=== PATIENT | male | born 1970 ===

== ENCOUNTER 2017-11-19 02:50 | Emergency (ER) | payer BC ==
[2017-11-19] MEDS ORDERED: Sodium Chloride 0.9% 1,000 ML IV ONE (03:04)
[2017-11-19] MEDS ORDERED: Morphine 4 MG/ML Syringe IVPUSH PRN (03:04)
[2017-11-19] MEDS ORDERED: Sodium Chloride 0.9% 10 ML Syringe FLUSH PRN (03:04)
[2017-11-19] MEDS ORDERED: Ketorolac 30 MG/ML SDV IVPUSH ONE (03:04)
[2017-11-19] MEDS ORDERED: Ondansetron 4 MG/2 ML SDV IVPUSH ONE (03:04)
--- NOTE | 2017-11-19 04:08 | EDM.PDOC ---
ED HPI GENERAL MEDICAL PROBLEM - General Chief Complaint: Flank Pain Stated Complaint: KIDNEY STONE ISSUES Time Seen by Provider: 11/19/17 03:04 Source of Information: Reports: Patient History Limitations: Reports: No Limitations - History of Present Illness INITIAL COMMENTS - FREE TEXT/NARRATIVE: The patient is a 47-year-old male with a known history of kidney stones who presents with right flank pain. It woke him up from sleep around 2 this morning. He felt fine last evening when he went to bed. Pain is sharp, was radiating towards the right abdomen, no exacerbating or relieving factors, no provoking factors. [place] nauseated but no vomiting. No fever. He did have hematuria. No dysuria. No additional complaint. Feels very similar to when he had a kidney stone several years ago. No cough or shortness of breath, no recent illness. Right Flank Pain Score (Numeric/FACES): 9 - Related Data Allergies Allergy/AdvReac Type Severity Reaction Status Date / Time shellfish derived Allergy Anaphylactic Verified 01/15/17 14:00 Shock Home Meds: Home Meds Ibuprofen [Ibu] 800 mg PO TID PRN #40 tablet 11/19/17 [Rx] Ondansetron [Zofran ODT] 4 mg PO Q6H PRN #12 tab.dis 11/19/17 [Rx] oxyCODONE 5 mg PO QID PRN #16 tab 11/19/17 [Rx] Past Medical History - Past Health History Medical/Surgical History: Denies Medical/Surgical History Genitourinary History: Reports: Renal Calculus Social & Family History - Family History Family Medical History: Noncontributory - Tobacco Use Smoking Status *Q: Current Every Day Smoker Years of Tobacco use: 1 Packs/Tins Daily: 0.9 - Caffeine Use Caffeine Use: Reports: None - Recreational Drug Use Recreational Drug Use: No ED ROS GENERAL - Review of Systems Review Of Systems: See Below Constitutional: Denies: Fever HEENT: Reports: No Symptoms Respiratory: Denies: Shortness of Breath Cardiovascular: Reports: No Symptoms Endocrine: Reports: No Symptoms GI/Abdominal: Reports: Nausea. Denies: Abdominal Pain, Vomiting : Reports: Flank Pain, Hematuria Musculoskeletal: Reports: No Symptoms Skin: Reports: No Symptoms Neurological: Reports: No Symptoms Psychiatric: Reports: No Symptoms Hematologic/Lymphatic: Reports: No Symptoms Immunologic: Reports: No Symptoms ED EXAM, RENAL/ - Physical Exam Exam: See Below Exam Limited By: No Limitations General Appearance: Alert, WD/WN, No Apparent Distress Eye Exam: Bilateral Eye: EOMI, Normal Inspection Ears: Normal External Exam Nose: Normal Inspection Throat/Mouth: Normal Inspection, Normal Oropharynx, Normal Voice, No Airway Compromise Head: Atraumatic, Normocephalic Neck: Normal Inspection, Supple, Non-Tender, Full Range of Motion Respiratory/Chest: No Respiratory Distress, Lungs Clear, Normal Breath Sounds, No Accessory Muscle Use Cardiovascular: Normal Peripheral Pulses, Regular Rate, Rhythm, No Edema GI/Abdominal: Soft, Non-Tender, No Distention Back Exam: Normal Inspection. No: CVA Tenderness (L), CVA Tenderness (R) Extremities: Normal Inspection Neurological: Alert, Oriented, Normal Cognition, No Motor/Sensory Deficits Psychiatric: Normal Affect, Normal Mood Skin Exam: Warm, Dry, Intact, Normal Color, No Rash Course - Vital Signs Last Recorded V/S: Last Vital Signs Temp 36.6 C 11/19/17 02:57 Pulse 62 11/19/17 02:57 Resp 18 11/19/17 02:57 BP 134/103 H 11/19/17 02:57 Pulse Ox 100 11/19/17 02:57 - Orders/Labs/Meds Orders: Active Orders 24 hr Category Date Time Status Peripheral IV Care [RC] . DIRECTED Care 11/19/17 03:04 Active Peripheral IV Care [RC] . DIRECTED Care 11/19/17 03:04 Active UA W/MICROSCOPIC [URIN] Stat Lab 11/19/17 03:20 Ordered Morphine Med 11/19/17 03:04 Active 4 mg IVPUSH Q2H PRN Sodium Chloride 0.9% [Saline Flush] Med 11/19/17 03:04 Active 10 ml FLUSH ASDIRECTED PRN Peripheral IV Insertion Adult [OM.PC] Routine Oth 11/19/17 03:04 Ordered Medication Orders Morphine Sulfate (Morphine) 4 mg IVPUSH Q2H PRN PRN Reason: Pain Last Admin: 11/19/17 03:22 Dose: 4 mg Sodium Chloride (Saline Flush) 10 ml FLUSH ASDIRECTED PRN PRN Reason: Keep Vein Open Last Admin: 11/19/17 03:25 Dose: 10 ml Labs: Laboratory Tests 11/19/17 11/19/17 11/19/17 Range/Units 03:05 03:05 03:20 WBC 7.74 (4.23-9.07) K/mm3 RBC 5.22 (4.63-6.08) M/mm3 Hgb 15.8 (13.7-17.5) gm/L Hct 46.3 (40.1-51.0) % MCV 88.7 (79.0-92.2) fl MCH 30.3 (25.7-32.2) pg MCHC 34.1 (32.2-35.5) g/dl RDW Std Deviation 43.0 (35.1-43.9) fL Plt Count 183 (163-337) K/mm3 MPV 10.6 (9.4-12.3) fl Neut % (Auto) 51.9 (34.0-67.9) % Lymph % (Auto) 35.0 (21.8-53.1) % [place] % (Auto) 7.6 (5.3-12.2) % Eos % (Auto) 4.8 (0.8-7.0) Baso % (Auto) 0.6 (0.1-1.2) % Neut # (Auto) 4.01 (1.78-5.38) K/mm3 Lymph # (Auto) 2.71 (1.32-3.57) K/mm3 [place] # (Auto) 0.59 (0.30-0.82) K/mm3 Eos # (Auto) 0.37 (0.04-0.54) K/mm3 Baso # (Auto) 0.05 (0.01-0.08) K/mm3 Sodium 141 (136-145) mEq/L Potassium 4.0 (3.5-5.1) mEq/L Chloride 105 (98-107) mEq/L Carbon Dioxide 25 (21-32) mEq/L Anion Gap 15.0 (5-15) BUN 21 H (7-18) mg/dL Creatinine 1.1 (0.7-1.3) mg/dL Est Cr Clr Drug Dosing 92.10 mL/min Estimated GFR (MDRD) > 60 (>60) mL/min BUN/Creatinine Ratio 19.1 H (14-18) Glucose 136 H (74-106) mg/dL Calcium 8.4 L (8.5-10.1) mg/dL Total Bilirubin 0.2 (0.2-1.0) mg/dL AST 12 L (15-37) U/L ALT 41 (16-63) U/L Alkaline Phosphatase 89 (46-116) U/L Total Protein 7.2 (6.4-8.2) g/dl Albumin 3.8 (3.4-5.0) g/dl Globulin 3.4 gm/dL Albumin/Globulin Ratio 1.1 (1-2) Urine Color Red H (Yellow) Urine Appearance Turbid H (Clear) Urine pH 6.0 (5.0-8.0) Ur Specific [place] > or = 1.030 (1.005-1.030) Urine Protein 1+ H (Negative) Urine Glucose (UA) Negative (Negative) Urine Ketones Negative (Negative) Urine Occult Blood 3+ H (Negative) Urine Nitrite Negative (Negative) Urine Bilirubin Negative (Negative) Urine Urobilinogen 0.2 (0.2-1.0) Ur Leukocyte Esterase Negative (Negative) Urine RBC >100 H (0-5) /hpf Urine WBC 0-5 (0-5) /hpf Ur Epithelial Cells 0-5 (0-5) /hpf Urine Bacteria Few (FEW) /hpf Urine Mucus Not seen (FEW) /hpf Meds: Medications Generic Name Dose Route Start Last Admin Trade Name Freq PRN Reason Stop Dose Admin Morphine Sulfate 4 mg 11/19/17 03:04 11/19/17 03:22 Morphine IVPUSH 4 mg Q2H PRN Administration Pain Sodium Chloride 10 ml 11/19/17 03:04 11/19/17 03:25 Saline Flush FLUSH 10 ml ASDIRECTED PRN Administration Keep Vein Open Discontinued Medications Generic Name Dose Route Start Last Admin Trade Name Freq PRN Reason Stop Dose Admin Sodium Chloride 1,000 mls @ 1,000 mls/hr 11/19/17 03:04 11/19/17 03:22 Normal Saline IV 11/19/17 04:03 1,000 mls/hr ONETIME ONE Administration Ketorolac Tromethamine 30 mg 11/19/17 03:04 11/19/17 03:22 Toradol IVPUSH 11/19/17 03:05 30 mg ONETIME ONE Administration Ondansetron HCl 4 mg 11/19/17 03:04 11/19/17 03:22 Zofran IVPUSH 11/19/17 03:05 4 mg ONETIME ONE Administration - Re-Assessments/Exams Free Text/Narrative Re-Assessment/Exam: 11/19/17 04:13 UA shows hematuria. Labs significant for normal CBC, normal creatinine, normal electrolytes. He is feeling much better after fluids, Zofran , Toradol. His pain is resolved. He has no pain whatsoever. Therefore we will not do a CT scan. I do suspect that he passed a kidney stone. We'll provide a prescription for some pain medication in case he still has ureterolithiasis and advised to follow-up with his primary care provider or return to the emergency department if he continues to have pain, at which time a CT scan can be reconsidered. Departure - Departure Time of Disposition: 04:04 Disposition: Home, Self-Care 01 Clinical Impression: Ureterolithiasis - Discharge Information Prescriptions: Ibuprofen [Ibu] 800 mg PO TID PRN #40 tablet PRN Reason: Pain Ondansetron [Zofran ODT] 4 mg PO Q6H PRN #12 tab.dis PRN Reason: Nausea oxyCODONE 5 mg PO QID PRN #16 tab PRN Reason: Pain Referrals: Yumiko Hebert [employer] [Primary Care Provider] - Forms: ED Department Discharge Additional Instructions: 1. Take ibuprofen for pain. Take oxycodone for severe pain. No driving/working while taking oxycodone as it can make you sleepy or confused. 2. Follow up with [facility] if not improving 3. Return to the ED if you have severe pain, fever, vomiting without keeping liquids down, or other concerning symptoms - My Orders Last 24 Hours: My Active Orders 11/19/17 03:04 Peripheral IV Care [RC] . DIRECTED Peripheral IV Care [RC] . DIRECTED Morphine 4 mg IVPUSH Q2H PRN Sodium Chloride 0.9% [Saline Flush] 10 ml FLUSH ASDIRECTED PRN Peripheral IV Insertion Adult [OM.PC] Routine 11/19/17 03:20 UA W/MICROSCOPIC [URIN] Stat - Assessment/Plan Last 24 Hours: My Active Orders 11/19/17 03:04 Peripheral IV Care [RC] . DIRECTED Peripheral IV Care [RC] . DIRECTED Morphine 4 mg IVPUSH Q2H PRN Sodium Chloride 0.9% [Saline Flush] 10 ml FLUSH ASDIRECTED PRN Peripheral IV Insertion Adult [OM.PC] Routine 11/19/17 03:20 UA W/MICROSCOPIC [URIN] Stat
== END 2017-11-19 04:56 | disposition home or self-care (01) ==
LOC: JD.ED 02:50
DX: N20.1 Calculus of ureter (principal); F17.210 Nicotine dependence, cigarettes, uncomplicated; Z91.013 Allergy to seafood; Z87.442 Personal history of urinary calculi; Z79.899 Other long term (current) drug therapy
CPT/HCPCS: 36415; 80053; 81001; 85025; 96361; 96374; 96375; 99284; J1885; J2270; J2405; J7040; J7050